=== PATIENT | female | born 1970 | race Caucasian/White ===

== ENCOUNTER → 2020-09-14 | Outpatient (CLI) | payer MEDICARE ==
[~2020-09-14] MED LIST: ACET500 PO; AMIT75 PO; CLON.2 PO; CRUTCH4 USE; DICY20 PO; DULO30 PO; FENO54 PO; GLYB5 PO; IBUP600 PO; LAMO100 PO; LISI20 PO; METF500 PO; RXHYDACE PO; VENL75ER PO
== END ==
LOC: LAB SHORT 17:50 → LAB 17:50
DX: N39.0 Urinary tract infection, site not specified (principal)
CPT/HCPCS: 87077; 87086; 87186